=== PATIENT | female | born 1965 | race Caucasian/White ===

== ENCOUNTER → 2017-02-19 | Outpatient (CLI) | payer OTHER ==
[2017-02-19 09:52] LABS: Appearance,Urine Clear (Clear); Bilirubin,Urine Negative (Negative); Glucose,Urine (UA) Negative (Negative); Ketones,Urine Negative (Negative); Leukocyte Esterase,Urine Moderate (Negative); Mucus,Urine Rare /hpf; Nitrite,Urine Negative (Negative); Particle Count 1339; Protein,Urine Trace (Negative); RBC,Urine 32 /hpf (0-5); Specific Gravity,Urine 1.011 (1.001-1.035); Squamous Epithelial Cell,Urine <1 /hpf (0-4); UA Billing (MACRO vs. MICRO) MICRO; Urobilinogen,Urine <2.0 mg/dL (<2.0); WBC,Urine 10 /hpf (0-5)
[2017-02-19 10:02] LABS: CHCM 31.8; HCT 50.1 % (34.0-46.0); HDW 2.53; HGB 15.6 gm/dL (11.4-16.0); MCH 29.6 pg (25.0-35.0); MCHC 31.2 g/dL (31.0-37.0); MCV 94.8 fL (80.0-100.0); Mean Platelet Volume 7.1; RBC 5.28 m/uL (3.80-5.40); RDW 13.7 % (11.5-15.5); WBC 6.9 k/uL (3.8-10.6)
[2017-02-19 10:10] LABS: INR 4.2 (<1.2); Partial Thromboplastin Time 38.3 sec (22.0-30.0); Prothrombin Time 41.2 sec (9.0-12.0)
[2017-02-19 10:31] LABS: ALT 36 U/L (9-52); AST 27 U/L (14-36); Alkaline Phosphatase 187 U/L (38-126); Anion Gap 12 mmol/L; Blood Urea Nitrogen 33 mg/dL (7-17); Calcium 9.9 mg/dL (8.4-10.2); Carbon Dioxide 26 mmol/L (22-30); Chloride 105 mmol/L (98-107); Cholesterol 184 mg/dL (<200); Glucose 127 mg/dL (74-99); HDL Cholesterol 31 mg/dL (40-60); Magnesium 2.1 mg/dL (1.6-2.3); Non-African American GFR(MDRD) 58 (>60 ml/min/1.73 sqM); Sodium 143 mmol/L (137-145); Total Bilirubin 0.7 mg/dL (0.2-1.3)
[2017-02-19 11:46] LABS: EKG EKG PERFORMED
--- NOTE | 2017-02-19 12:53 | XR ---
EXAMINATION TYPE: XR chest 2V DATE OF EXAM: 02/19/2017 COMPARISON: NONE HISTORY: Preoperative evaluation. TECHNIQUE: Frontal and lateral views of the chest are obtained. FINDINGS: Pulmonary hyperinflation, increased anterior posterior diameter of the chest and biapical lucency related to underlying COPD. Biapical pleural-parenchymal thickening are noted. Small bilatera l pleural effusions are seen with associated bibasilar airspace disease, likely atelectasis. Bilatera l nipple shadows are incidentally identified. Cardia mediastinal silhouette is within normal limits. IMPRESSION: 1. Radiographic sequela of COPD. 2. Small bilateral pleural effusions.
--- NOTE | 2017-02-19 12:54 | US ---
EXAMINATION TYPE: US carotid duplex BILAT DATE OF EXAM: 02/19/2017 COMPARISON: NONE CLINICAL HISTORY: OPEN HEART. Pre valve sx,no h/o stroke or symptoms EXAM MEASUREMENTS: RIGHT: Peak Systolic Velocity (PSV) cm/sec ----- Right CCA: 64.5 ----- Right ICA: 53.8 ----- Right ECA: 67.1 ICA/CCA ratio: 0.8 RIGHT: End Diastole cm/sec ----- Right CCA: 22.5 ----- Right ICA: 27.5 ----- Right ECA: 20.1 LEFT: Peak Systolic Velocity (PSV) cm/sec ----- Left CCA: 60.0 ----- Left ICA: 62.1 ----- Left ECA: 68.5 ICA/CCA ratio: 1.0 LEFT: End Diastole cm/sec ----- Left CCA: 29.4 ----- Left ICA: 32.2 ----- Left ECA: 25.1 VERTEBRALS (direction of flow): Right Vertebral: Antegrade Left Vertebral: Antegrade Rhythm: Arrhythmia Mild homogeneous plaque seen with no significant stenosis seen IMPRESSION: No sonographic evidence of hemodynamically significant stenosis within either carotid ar terial system.
== END | disposition home or self-care (01) ==
LOC: LABPAT 07:57
PROVIDERS: ATTEND Thoracic Surgery (Cardiothoracic Vascular Surgery)
DX: Z01.810 Encounter for preprocedural cardiovascular examination (principal); R94.31 Abnormal electrocardiogram [ECG] [EKG]; I48.92 Unspecified atrial flutter; I44.30 Unspecified atrioventricular block; J90 Pleural effusion, not elsewhere classified; J44.9 Chronic obstructive pulmonary disease, unspecified
CPT/HCPCS: 36415; 71020; 80053; 80061; 80074; 81001; 83036; 83735; 83880; 84443; 84484; 85027; 85610; 85730; 87070; 87086; 93005; 93880; 93970